=== PATIENT | female | born 1960 | race Two or more races ===

== ENCOUNTER 2023-05-09 07:47 | Inpatient (IN) | payer MEDICAID ==
[2023-05-07 11:55] LABS: Basophils # (auto) 0 10 ^3/uL (0-0.2); Basophils % (auto) 0.5 % (0.0-2.0); Eosinophils # (auto) 0.2 10 ^3/uL (0-0.8); Eosinophils % (auto) 2.1 % (0.0-7.0); Hematocrit 40.9 % (36.0-46.0); Hemoglobin 13.7 g/dL (12.2-16.2); Lymphocytes # (auto) 2.1 10 ^3/uL (0.4-5.4); Lymphocytes % (auto) 26.1 % (10.0-50.0); Mean Corpuscular Hemoglobin 29.8 pg (28.0-32.0); Mean Corpuscular Hgb Conc. 33.5 g/dL (32.0-36.0); Monocytes # (auto) 0.4 10 ^3/uL (0-1.3); Monocytes % (auto) 4.7 % (0.0-12.0); Neutrophils # (auto) 5.4 10 ^3/uL (1.6-8.6); Neutrophils % (auto) 66.6 % (37.0-80.0); Nucleated Red Blood Cells % 0.2 %; Red Blood Cells 4.59 10^6/uL (4.0-5.20); Red Cell Distribution Width 14.2 % (11.8-14.3); White Blood Cell 8.1 10^3/uL (4.4-10.8)
[2023-05-07 12:06] LABS: INR 0.92 (0.9-1.15); Partial Thromboplastin Time 27.6 sec (24.6-33.4)
[2023-05-07 12:10] LABS: Urine Bacteria NONE SEEN /hpf (None Seen); Urine Blood Negative /uL (Negative); Urine Specific Gravity 1.011 (1.001-1.035); Urine WBC 1 /hpf (0 - 5)
[2023-05-07 12:33] LABS: Calcium 9.2 mg/dL (8.5-10.1); Potassium 4.1 mmol/L (3.5-5.1)
[2023-05-07 12:37] LABS: Albumin 3.6 g/dL (3.4-5.0); BUN/Creatinine Ratio 20.6 (10.0-20.0)
[2023-05-07 12:39] LABS: Bilirubin, Total 0.5 mg/dL (0.2-1.0); Total Protein 7.3 g/dL (6.4-8.2)
[~2023-05-09] VITALS: Ht 161.3 cm; Wt 121.3 kg
[~2023-05-09 07:47] MED LIST: IBUP-1453 PO; MELO-335 PO; ceFAZolin 1GM/50ML 100 ML IV ONE
[2023-05-09] MEDS ORDERED: ceFAZolin 1GM/50ML 50 ML IV ONE (07:48)
[2023-05-09] MEDS ORDERED: BUPIVACAINE HCL 50 ML ONE (09:57)
[2023-05-09] MEDS ORDERED: LIDOCAINE 1% HCL (LOCAL ANESTH.) INJ 20ML MDV ONE (09:57)
[2023-05-09] MEDS ORDERED: KETOROLAC TROMETH 30 MG/ML 1ML VIAL ONE (10:01)
[2023-05-09] MEDS ORDERED: GLYCOPYRROLATE 0.2 MG/ML 1ML VIAL ONE (10:01)
[2023-05-09] MEDS ORDERED: PROPOFOL 10 MG/ML 20 ML IV ONE ×3 (10:01→11:01)
[2023-05-09] MEDS ORDERED: DexAMETHasone SOD PHOS 10MG/1ML VIAL INJ ONE (10:01)
[2023-05-09] MEDS ORDERED: ONDANSETRON HCL 4 MG/2 ML VIAL ONE (10:01)
[2023-05-09] MEDS ORDERED: HYDR-4798 PO (11:27)
[2023-05-09] MEDS ORDERED: AUG875T PO (11:27)
[2023-05-09] MEDS ORDERED: fentaNYL CITRATE 100 MCG/2 ML VL IV PRN (11:45)
[2023-05-09] MEDS ORDERED: ONDANSETRON HCL 4 MG/2 ML VIAL IV PRN (11:45)
[2023-05-09] MEDS ORDERED: HYDROmorphone HCL 2 MG/ML VL/or syr IV PRN (11:45)
[2023-05-09] MEDS ORDERED: hydrALAZINE HCL 20 MG/ML VL IV PRN (11:45)
[2023-05-09] MEDS ORDERED: ePHEDrine SULFATE 50 MG/ML AMP IV PRN (11:45)
[2023-05-09] MEDS ORDERED: LABETALOL HCL 5 MG/ML 4ML SYRINGE IV PRN (11:45)
[2023-05-09] MEDS ORDERED: NALOXONE HCL 0.4 MG/ML VIAL IV PRN (11:45)
[2023-05-09] MEDS ORDERED: FLUMAZENIL 0.1 MG/ML INJ 10ML MDV IV PRN (11:45)
[2023-05-09] MEDS: oxyCODONE HCL 5MG TAB PO PRN ×2 (12:35→18:49)
[2023-05-09 17:00] VITALS: BP 124/61
[2023-05-09 17:23] VITALS: BP 124/61
[2023-05-09 22:00] VITALS: BP 121/62
[2023-05-10] MEDS: oxyCODONE HCL 5MG TAB PO PRN ×2 (04:42→10:51)
[2023-05-10 05:24] VITALS: BP 122/57
[2023-05-10 05:41] LABS: Basophils # (auto) 0 10 ^3/uL (0-0.2); Basophils % (auto) 0.1 % (0.0-2.0); Eosinophils # (auto) 0 10 ^3/uL (0-0.8); Hematocrit 39.1 % (36.0-46.0); Hemoglobin 13.1 g/dL (12.2-16.2); Lymphocytes # (auto) 1.2 10 ^3/uL (0.4-5.4); Lymphocytes % (auto) 10.6 % (10.0-50.0); Mean Corpuscular Hemoglobin 29.9 pg (28.0-32.0); Mean Corpuscular Hgb Conc. 33.4 g/dL (32.0-36.0); Mean Corpuscular Volume 89.4 fL (80.0-100.0); Monocytes # (auto) 0.4 10 ^3/uL (0-1.3); Monocytes % (auto) 3.6 % (0.0-12.0); Neutrophils # (auto) 9.9 10 ^3/uL (1.6-8.6); Neutrophils % (auto) 85.7 % (37.0-80.0); Red Blood Cells 4.37 10^6/uL (4.0-5.20); Red Cell Distribution Width 14.1 % (11.8-14.3); White Blood Cell 11.5 10^3/uL (4.4-10.8)
[2023-05-10 05:47] LABS: BUN/Creatinine Ratio 31.5 (10.0-20.0)
[2023-05-10 08:00] VITALS: BP 118/57
[2023-05-10 09:00] VITALS: BP 118/57
[2023-05-10 13:00] VITALS: BP 126/51
[2023-05-10 14:21] VITALS: BP 126/51
[2023-05-12 14:45] LABS: Hepatitis C Antibody Negative (Negative)
== END 2023-05-10 14:57 | disposition home or self-care (01) | DRG 314 ==
LOC: SUR 07:47 → OVERFLOW 12:12 → WEST WING 16:30
PROVIDERS: ADMIT Student in an Organized Health Care Education/Training Program; ATTEND Internal Medicine
PROC: 0SQM0ZZ Repair Right Metatarsal-Phalangeal Joint, Open Approach (ICD-10-PCS; 2023-05-09)
PROC: 0QBN0ZZ Excision of Right Metatarsal, Open Approach (ICD-10-PCS; 2023-05-09)
PROC: 0QSN04Z Reposition Right Metatarsal with Internal Fixation Device, Open Approach (ICD-10-PCS; principal; 2023-05-09 10:05)
DX: M20.11 Hallux valgus (acquired), right foot (principal); E66.01 Morbid (severe) obesity due to excess calories; Z68.42 Body mass index [BMI] 45.0-49.9, adult; M20.41 Other hammer toe(s) (acquired), right foot; Z98.84 Bariatric surgery status
CPT/HCPCS: 36415; 73620; 76000; 80048; 80053; 81001; 85025; 85610; 85730; 86803; 87340; G0378; J0690; J1100; J1885; J2001; J2405; J2704; J3490